=== PATIENT | male | born 1980 | race Caucasian/White ===

== ENCOUNTER → 2016-12-14 | Outpatient (CLI) | payer MEDICARE, MEDICAID ==
--- NOTE | 2016-12-14 14:15 | RADIOLOGY REPORT PS360 ---
CT ABD PELVIS W/WO CONTRAST INDICATION: Left lower quadrant pain, limited to bleeding, hematuria MICROHEMATURIA, LLQ PAIN ORDERING PHYSICIAN: Destin Cha MD PATIENT AGE: 36 years COMPARISON: None TECHNIQUE: Axial images are obtained without and with contrast. Sagittal and coronal reformatted images are reviewed as well. FINDINGS: Lung bases images are unremarkable. The liver, gallbladder, pancreas, adrenal glands, and spleen have an unremarkable appearance. No renal calculi evident. There is a 10 mm cyst involving the medial aspect of the right kidney. No hydronephrosis or ureteral calculi. Urinary bladder wall is thickened. No evidence of appendicitis, intestinal obstruction, free air, or diverticulitis. There are few scattered small lymph nodes in the retroperitoneum which are nonspecific. No acute bony anomalies. IMPRESSION: 1. Concentric thickening of the urinary bladder wall. This is nonspecific and may be seen with cystitis. Urinary bladder is incompletely distended. 2. Otherwise negative CT abdomen pelvis the findings. 3. 10 mm cyst of the right kidney.
== END ==
LOC: RAD 12-06 08:00
DX: R31.9 Hematuria, unspecified (principal); R10.32 Left lower quadrant pain
CPT/HCPCS: Q9967